=== PATIENT | female | born 1965 | race Caucasian/White ===

== ENCOUNTER 2017-01-07 14:51 | Emergency (ER) | payer OTHER ==
[~2017-01-07] VITALS: Ht 167.6 cm; Wt 59.0 kg
--- NOTE | ~2017-01-07 | EKG ---
[place], [place] ELECTROCARDIOGRAM REPORT NAME: JANEY SANTIAGO UNIT #: [id number] ROOM: DOCTOR: MARY POP MD BIRTHDATE: [birth year] DOS: 01/07/2017 TIME: 1514 hours. FINDINGS: 1. Sinus arrhythmia at the rate of 61. 2. RSR prime in early precordial leads. 2. Normal exam or normal EKG. MARY POP MD CM:EKGRPT:ELECTROCARDIOGRAM REPORT 34 [phone] MARY POP MD
[~2017-01-07 14:51] MED LIST: ALBUTEROL0.09 MG/A1 INH; ALBUTEROL0.09 MG/A2 IH; ALL DAY ALLERGY10 MG PO; AMOXICILLIN500 MG PO; BACLOFEN20 M1 PO; BREO ELLIPTA 11 EACH INH; DIFLUCAN150 MG PO; IBUPROFEN600 MG PO; MELOXICAM7.5 MG PO; PHENERGAN25 M3 PO; PYRIDIUM200 M1 PO; SERTRALINE HYDR50 MG PO; ULTRAM50 MG PO; VIBRAMYCIN100 MG PO; VITAMIN D50000 I3 PO
[2017-01-07] MEDS ORDERED: ALBUTEROL 3 ML 33 ML INH (14:59)
[2017-01-07 15:23] LABS: BASO % 0.3 % (0.0-1.0); EOS # 0.2 10*3/uL (0.0-0.4); EOS % 2.3 % (1.0-4.0); HEMATOCRIT 43.3 % (37.0-47.0); HEMOGLOBIN 14.5 g/dl (12.0-16.0); LYMPH # 1.5 10*3/uL (1.3-4.4); MEAN CELL VOLUME 97.5 fl (81.0-99.0); MEAN CORPUSCULAR HGB 32.7 pg (27.0-31.0); MEAN CORPUSCULAR HGB CONC 33.5 g/dl (33.0-37.0); MEAN PLATELET VOLUME 10.9 fl (9.6-12.3); MONO # 0.7 10*3/uL (0.1-1.0); MONO % 9.2 % (3.0-9.0); NEUT % 67.9 % (47.0-73.0); PLATELET COUNT AUTOMATED 243 10*3/uL (130-400); RED BLOOD COUNT 4.44 10*6/uL (4.10-5.10); RED CELL DISTRI WIDTH 13.4 % (0-14.5); WHITE BLOOD COUNT 7.4 10*3/uL (4.8-10.8)
[2017-01-07 15:33] LABS: PROTHROMBIN TIME 10.7 SECONDS (9.0-12.4)
[2017-01-07 15:51] LABS: ALBUMIN 3.7 gm/dl (3.1-4.5); ALKALINE PHOSPHATASE 68 U/L (45-117); BILIRUBIN, TOTAL 0.2 mg/dl (0.2-1.0); BUN 11 mg/dl (7-24); CARBON DIOXIDE 25 mmol/L (21-32); CHLORIDE 108 mmol/L (98-107); EST GLOM FILT AFRICAN AMERICAN > 60 ml/min; GLUCOSE 103 mg/dL (65-99); MAGNESIUM 2.2 mg/dL (1.5-2.1); POTASSIUM 4.6 mmol/L (3.5-5.1); SGOT/AST 13 IU/L (3-35); SGPT/ALT 12 U/L (12-78); SODIUM 142 mmol/L (136-145); TOTAL PROTEIN 7.2 gm/dL (6.4-8.2)
[2017-01-07 15:52] LABS: TROPONIN I < 0.015 ng/ml (<0.045)
[2017-01-07] MEDS ORDERED: FLONASE ALLERG9.9 ML NAS (16:21)
[2017-01-07] MEDS ORDERED: PREDNISONE10 MG PO (16:21)
[2017-01-07] MEDS ORDERED: ROBITUSSIN AC 110 ML PO (16:22)
== END 2017-01-07 17:33 | disposition left against medical advice (07) ==
LOC: ED 14:51
PROVIDERS: Nurse Practitioner Family
DX: J44.1 Chronic obstructive pulmonary disease with (acute) exacerbation (principal); I49.8 Other specified cardiac arrhythmias; F17.200 Nicotine dependence, unspecified, uncomplicated; Z79.899 Other long term (current) drug therapy; Z88.1 Allergy status to other antibiotic agents; Z88.8 Allergy status to other drugs, medicaments and biological substances

== ENCOUNTER 2017-02-01 17:40 | Inpatient (IN) | payer OTHER ==
[~2017-02-01 17:40] MED LIST changes: +ALBUTEROL 3 ML 33 ML INH; +FLONASE ALLERG9.9 ML NAS; +PREDNISONE10 MG PO; +ROBITUSSIN AC 110 ML PO
[2017-02-01 17:51] VITALS: BP 106/62
[2017-02-01] MEDS ORDERED: VITAMIN B121000 MC1 PO (17:55)
[2017-02-01 17:56] LABS: BASO % 0.4 % (0.0-1.0); EOS # 0.1 10*3/uL (0.0-0.4); EOS % 1.4 % (1.0-4.0); HEMATOCRIT 39.9 % (37.0-47.0); HEMOGLOBIN 13.6 g/dl (12.0-16.0); LYMPH # 1.7 10*3/uL (1.3-4.4); MEAN CELL VOLUME 95.2 fl (81.0-99.0); MEAN CORPUSCULAR HGB 32.5 pg (27.0-31.0); MEAN CORPUSCULAR HGB CONC 34.1 g/dl (33.0-37.0); MONO # 0.8 10*3/uL (0.1-1.0); MONO % 9.4 % (3.0-9.0); NEUT # 5.4 10*3/uL (2.3-7.9); NEUT % 67.5 % (47.0-73.0); PLATELET COUNT AUTOMATED 253 10*3/uL (130-400); RED BLOOD COUNT 4.19 10*6/uL (4.10-5.10)
[2017-02-01 18:06] LABS: PROTHROMBIN TIME 10.7 SECONDS (9.0-12.4)
[2017-02-01 18:13] LABS: ALBUMIN 3.5 gm/dl (3.1-4.5); ALKALINE PHOSPHATASE 65 U/L (45-117); BILIRUBIN, TOTAL 0.3 mg/dl (0.2-1.0); BUN 7 mg/dl (7-24); CARBON DIOXIDE 25 mmol/L (21-32); CHLORIDE 108 mmol/L (98-107); EST GLOM FILT AFRICAN AMERICAN > 60 ml/min; GLUCOSE 100 mg/dL (65-99); MAGNESIUM 2.3 mg/dL (1.5-2.1); POTASSIUM 3.9 mmol/L (3.5-5.1); SGOT/AST 14 IU/L (3-35); SGPT/ALT 12 U/L (12-78); SODIUM 141 mmol/L (136-145); TOTAL PROTEIN 6.7 gm/dL (6.4-8.2)
[2017-02-01 18:14] LABS: TROPONIN I < 0.015 ng/ml (<0.045)
[2017-02-01 18:35] VITALS: BP 97/55
[2017-02-01 18:53] VITALS: BP 101/65
[2017-02-01 20:02] VITALS: BP 113/69
[2017-02-02] VITALS: BP 101/51
[2017-02-02 00:38] LABS: CPK 64 U/L (26-192)
[2017-02-02 00:40] LABS: TROPONIN I < 0.015 ng/ml (<0.045)
[2017-02-02 06:31] LABS: BASO % 0.3 % (0.0-1.0); EOS # 0.2 10*3/uL (0.0-0.4); EOS % 2.5 % (1.0-4.0); HEMATOCRIT 38.8 % (37.0-47.0); LYMPH # 1.3 10*3/uL (1.3-4.4); LYMPH % 20.6 % (27.0-41.0); MEAN CELL VOLUME 96.3 fl (81.0-99.0); MEAN CORPUSCULAR HGB 32.3 pg (27.0-31.0); MEAN CORPUSCULAR HGB CONC 33.5 g/dl (33.0-37.0); MEAN PLATELET VOLUME 11.3 fl (9.6-12.3); MONO # 0.6 10*3/uL (0.1-1.0); MONO % 10.1 % (3.0-9.0); NEUT # 4.2 10*3/uL (2.3-7.9); NEUT % 66.3 % (47.0-73.0); PLATELET COUNT AUTOMATED 233 10*3/uL (130-400); RED BLOOD COUNT 4.03 10*6/uL (4.10-5.10); RED CELL DISTRI WIDTH 13.1 % (0-14.5); WHITE BLOOD COUNT 6.3 10*3/uL (4.8-10.8)
[2017-02-02 06:48] LABS: ALBUMIN 3.2 gm/dl (3.1-4.5); BUN 12 mg/dl (7-24); CARBON DIOXIDE 25 mmol/L (21-32); CHLORIDE 111 mmol/L (98-107); CHOLESTEROL 147 mg/dL (<200); EST GLOM FILT AFRICAN AMERICAN > 60 ml/min; GLUCOSE 87 mg/dL (65-99); PHOSPHOROUS 3.6 mg/dL (2.5-4.9); POTASSIUM 4.2 mmol/L (3.5-5.1); SGOT/AST 12 IU/L (3-35); SGPT/ALT 13 U/L (12-78); SODIUM 142 mmol/L (136-145); TRIGLYCERIDES 65 mg/dl (<150); VLDL CHOLESTEROL 13 mg/dL (6-40)
[2017-02-02 06:52] LABS: CPK 51 U/L (26-192); TROPONIN I < 0.015 ng/ml (<0.045)
[2017-02-02 06:55] LABS: ALKALINE PHOSPHATASE 62 U/L (45-117); BILIRUBIN, TOTAL 0.3 mg/dl (0.2-1.0); FREE T4 0.77 ng/dl (0.76-1.46); HDL CHOLESTEROL 64 mg/dl (40-60); LDL CHOLESTEROL 70 mg/dL (9-159); TOTAL PROTEIN 6.3 gm/dL (6.4-8.2)
[2017-02-02 06:59] LABS: PROTHROMBIN TIME 10.9 SECONDS (9.0-12.4)
[2017-02-02 07:21] LABS: HEMOGLOBIN A1c 5.1 % (4.8-5.6)
[2017-02-02 08:00] VITALS: BP 92/57
[2017-02-02 08:03] LABS: VITAMIN D, 25-HYDROXY 15.1 ng/mL (30-100)
[2017-02-02 08:04] LABS: FOLIC ACID 3.7 ng/mL (>5.38)
[2017-02-02 12:00] VITALS: BP 91/55
[2017-02-02 12:19] LABS: CKMB 1.3 ng/ml (0.5-3.6); CPK 60 U/L (26-192)
[2017-02-02 12:21] LABS: TROPONIN I < 0.015 ng/ml (<0.045)
== END 2017-02-02 14:12 | disposition home or self-care (01) | DRG 313 ==
LOC: ED 17:40 → EDHOLD 18:53 → 4E 18:53
PROVIDERS: Emergency Medicine; Hospitalist
DX: R07.89 Other chest pain (principal); E87.8 Other disorders of electrolyte and fluid balance, not elsewhere classified; E44.0 Moderate protein-calorie malnutrition; E83.41 Hypermagnesemia; R00.1 Bradycardia, unspecified; J44.9 Chronic obstructive pulmonary disease, unspecified; F41.9 Anxiety disorder, unspecified; M51.36 Other intervertebral disc degeneration, lumbar region; E55.9 Vitamin D deficiency, unspecified; E53.8 Deficiency of other specified B group vitamins; F17.210 Nicotine dependence, cigarettes, uncomplicated; Z80.0 Family history of malignant neoplasm of digestive organs; Z88.1 Allergy status to other antibiotic agents; Z88.8 Allergy status to other drugs, medicaments and biological substances; Z71.6 Tobacco abuse counseling

== ENCOUNTER 2017-03-17 19:51 | Emergency (ER) | payer OTHER ==
[~2017-03-17] VITALS: Ht 167.6 cm; Wt 56.7 kg
[~2017-03-17 19:51] MED LIST changes: +VITAMIN B121000 MC1 PO
[2017-03-17 20:20] LABS: BASO % 0.3 % (0.0-1.0); EOS # 0.1 10*3/uL (0.0-0.4); EOS % 0.9 % (1.0-4.0); HEMATOCRIT 39.2 % (37.0-47.0); HEMOGLOBIN 13.1 g/dl (12.0-16.0); LYMPH # 1.3 10*3/uL (1.3-4.4); LYMPH % 17.2 % (27.0-41.0); MEAN CELL VOLUME 96.6 fl (81.0-99.0); MEAN CORPUSCULAR HGB 32.3 pg (27.0-31.0); MEAN CORPUSCULAR HGB CONC 33.4 g/dl (33.0-37.0); MEAN PLATELET VOLUME 10.9 fl (9.6-12.3); MONO # 0.5 10*3/uL (0.1-1.0); MONO % 7.1 % (3.0-9.0); NEUT # 5.6 10*3/uL (2.3-7.9); NEUT % 74.1 % (47.0-73.0); PLATELET COUNT AUTOMATED 226 10*3/uL (130-400); RED BLOOD COUNT 4.06 10*6/uL (4.10-5.10); RED CELL DISTRI WIDTH 12.8 % (0-14.5); WHITE BLOOD COUNT 7.6 10*3/uL (4.8-10.8)
[2017-03-17 20:31] LABS: PROTHROMBIN TIME 10.4 SECONDS (9.0-12.4)
[2017-03-17 20:37] LABS: ALBUMIN 3.5 gm/dl (3.1-4.5); ALKALINE PHOSPHATASE 71 U/L (45-117); BILIRUBIN, TOTAL 0.2 mg/dl (0.2-1.0); BUN 6 mg/dl (7-24); CARBON DIOXIDE 24 mmol/L (21-32); CHLORIDE 110 mmol/L (98-107); CKMB 2.1 ng/ml (0.5-3.6); CPK 73 U/L (26-192); EST GLOM FILT AFRICAN AMERICAN > 60 ml/min; GLUCOSE 107 mg/dL (65-99); LDH 143 U/L (84-246); POTASSIUM 3.9 mmol/L (3.5-5.1); SGOT/AST 17 IU/L (3-35); SGPT/ALT 19 U/L (12-78); SODIUM 144 mmol/L (136-145); TOTAL PROTEIN 6.7 gm/dL (6.4-8.2)
[2017-03-17 20:38] LABS: TROPONIN I < 0.015 ng/ml (<0.045)
[2017-03-17] MEDS ORDERED: NAPROSYN500 MG PO (21:19)
== END 2017-03-17 21:23 | disposition home or self-care (01) ==
LOC: ED 19:51
PROVIDERS: Physician Assistant
DX: M79.601 Pain in right arm (principal); F17.200 Nicotine dependence, unspecified, uncomplicated; Z88.1 Allergy status to other antibiotic agents; Z88.8 Allergy status to other drugs, medicaments and biological substances

== ENCOUNTER → 2018-07-09 | Outpatient (CLI) | payer OTHER ==
[~2018-07-09] MED LIST changes: +NAPROSYN500 MG PO
--- NOTE | ~2018-07-09 | PF ---
[place], [place] PULMONARY FUNCTION TEST NAME: JANEY SANTIAGO UNIT #: [id number] ROOM: DOCTOR: JOAO LOTT MD,PHAN BIRTHDATE: [birth year] DOS: 07/09/2018 HISTORY: The patient recorded 52-year-old female, height of 66 inches, weight 140 pounds with diagnosis of COPD, symptom reported are dyspnea with exertion, productive cough and constant wheezing. Chronic tobacco use 1 pack of cigarettes per day for 36 years were also reported. SPIROMETRY: The FVC was recorded 3.38 liters as 92% predicted value. The FEV1 of 1.84 liters, 63% predicted value, moderately decreased. Ratio of FEV1/FVC postbronchodilator is a 54%. No changes occurred for the patient. Significant postbronchodilator administration. Flow volume loop for the patient was noted with finding of obstructive lung disease. The lung volume, thoracic gas volume recorded 151%, residual volume 98%, total lung capacity 129%, RV/TLC ratio 152%. The patient's lung diffusion recorded 81%. The patient's air resistance and passive conductance noted abnormal, partial improvement post-bronchodilator test. FINAL IMPRESSION: The current test was noted with finding consistent with moderate COPD and also consideration for bronchial asthma as well. Clinical correlation would be advised. PHAN SHEPHERD MD CM:PFREPORT:PULMONARY FUNCTION TEST [id number] PHAN LOTT MD
== END | disposition home or self-care (01) ==
LOC: CANPRECLI → CP 06-24 14:28
DX: J44.9 Chronic obstructive pulmonary disease, unspecified (principal)

== ENCOUNTER 2020-10-04 03:34 | Emergency (ER) | payer OTHER ==
[~2020-10-04] VITALS: Ht 167.6 cm; Wt 67.1 kg
[2020-10-04 04:48] LABS: BASO % 0.1 % (0.0-1.0); EOS % 0.3 % (1.0-4.0); HEMATOCRIT 37.5 % (37.0-47.0); LYMPH # 0.9 10*3/uL (1.3-4.4); LYMPH % 6.5 % (27.0-41.0); MEAN CELL VOLUME 92.1 fl (81.0-99.0); MEAN CORPUSCULAR HGB 30.5 pg (27.0-31.0); MEAN CORPUSCULAR HGB CONC 33.1 g/dl (33.0-37.0); MEAN PLATELET VOLUME 10.3 fl (9.6-12.3); MONO # 1.2 10*3/uL (0.1-1.0); MONO % 8.4 % (3.0-9.0); NEUT # 11.6 10*3/uL (2.3-7.9); NEUT % 84.3 % (47.0-73.0); PLATELET COUNT AUTOMATED 300 10*3/uL (130-400); RED BLOOD COUNT 4.07 10*6/uL (4.10-5.10); RED CELL DISTRI WIDTH 12.9 % (0-14.5); WHITE BLOOD COUNT 13.8 10*3/uL (4.8-10.8)
[2020-10-04 05:05] LABS: ALKALINE PHOSPHATASE 92 U/L (45-117); BUN 5 mg/dl (7-24); CHLORIDE 110 mmol/L (98-107); CREATININE 0.63 mg/dL (0.55-1.02); POTASSIUM 3.6 mmol/L (3.5-5.1); SGOT/AST 11 IU/L (3-35); SGPT/ALT 16 U/L (12-78); SODIUM 139 mmol/L (136-145); TOTAL PROTEIN 6.9 gm/dL (6.4-8.2)
[2020-10-04] MEDS ORDERED: LEVOFLOXACIN750 M2 PO (07:55)
== END 2020-10-04 08:07 | disposition home or self-care (01) ==
LOC: ED 03:34
PROVIDERS: Emergency Medicine
DX: J18.9 Pneumonia, unspecified organism (principal); J44.9 Chronic obstructive pulmonary disease, unspecified; F17.200 Nicotine dependence, unspecified, uncomplicated; Z20.822 Contact with and (suspected) exposure to COVID-19; Z88.1 Allergy status to other antibiotic agents; Z79.899 Other long term (current) drug therapy; Z98.890 Other specified postprocedural states

== ENCOUNTER 2023-02-03 21:11 | Emergency (ER) | payer OTHER ==
[~2023-02-03 21:11] MED LIST changes: +LEVOFLOXACIN750 M2 PO
[2023-02-03 22:12] LABS: BASO % 0.4 % (0.0-1.0); EOS # 0.1 10*3/uL (0.0-0.4); EOS % 1.5 % (1.0-4.0); HEMATOCRIT 36.5 % (37.0-47.0); LYMPH # 1.5 10*3/uL (1.3-4.4); LYMPH % 31.5 % (27.0-41.0); MEAN CELL VOLUME 93.8 fl (81.0-99.0); MEAN CORPUSCULAR HGB 31.6 pg (27.0-31.0); MEAN CORPUSCULAR HGB CONC 33.7 g/dl (33.0-37.0); MEAN PLATELET VOLUME 10.8 fl (9.6-12.3); MONO # 0.5 10*3/uL (0.1-1.0); MONO % 10.4 % (3.0-9.0); NEUT # 2.6 10*3/uL (2.3-7.9); PLATELET COUNT AUTOMATED 235 10*3/uL (130-400); RED BLOOD COUNT 3.89 10*6/uL (4.10-5.10); RED CELL DISTRI WIDTH 13.5 % (0-14.5); WHITE BLOOD COUNT 4.6 10*3/uL (4.8-10.8)
[2023-02-03 22:25] LABS: INTERNATIONAL NORM RATIO 1.1 (2.0-3.5)
[2023-02-03 22:42] LABS: ALKALINE PHOSPHATASE 98 U/L (46-116); BUN 6 mg/dl (9-23); CHLORIDE 108 mmol/L (98-107); POTASSIUM 3.9 mmol/L (3.4-5.1); SGPT/ALT 13 U/L (10-49); TOTAL PROTEIN 6.7 gm/dL (6.0-8.0)
[2023-02-04] MEDS ORDERED: MEDROL DOSEPAK4 MG PO (01:07)
== END 2023-02-04 01:17 | disposition home or self-care (01) ==
LOC: ED 21:11
PROVIDERS: Emergency Medicine
DX: M54.12 Radiculopathy, cervical region (principal); M79.632 Pain in left forearm; E83.41 Hypermagnesemia; F41.9 Anxiety disorder, unspecified; J44.9 Chronic obstructive pulmonary disease, unspecified; Z98.890 Other specified postprocedural states; Z88.1 Allergy status to other antibiotic agents; Z88.8 Allergy status to other drugs, medicaments and biological substances; Z72.0 Tobacco use

== ENCOUNTER 2024-10-18 16:28 | Emergency (ER) | payer MEDICARE ==
[~2024-10-18] VITALS: Ht 167.6 cm; Wt 72.1 kg
[~2024-10-18 16:28] MED LIST changes: +MEDROL DOSEPAK4 MG PO
[2024-10-18] MEDS ORDERED: AMOX-CLAV 875-1 EACH PO (17:00)
[2024-10-18] MEDS ORDERED: Amoxicillin/Clavulanate Pota 875 MG TAB PO ONE (17:00)
== END 2024-10-18 17:17 | disposition home or self-care (01) ==
LOC: ED 16:28
DX: J02.0 Streptococcal pharyngitis (principal); J44.9 Chronic obstructive pulmonary disease, unspecified; I10 Essential (primary) hypertension; F17.200 Nicotine dependence, unspecified, uncomplicated; Z79.899 Other long term (current) drug therapy; Z88.8 Allergy status to other drugs, medicaments and biological substances; Z98.890 Other specified postprocedural states